=== PATIENT | female | born 1995 ===

== ENCOUNTER 2022-09-24 06:43 | Emergency (ER) | payer SELFPAY ==
[~2022-09-24] VITALS: Ht 160 cm; Wt 82.8 kg
[2022-09-24 06:44] VITALS: BP 129/78
[2022-09-24 07:31] LABS: APPEARANCE, URINE HAZY (CLEAR); BACTERIA, URINE AUTO 1+ (NEGATIVE); BILIRUBIN, URINE AUTO NEGATIVE (NEGATIVE); BLOOD, URINE BLOOD 2+ (NEGATIVE); COLOR, URINE YELLOW (YELLOW); GLUCOSE, URINE (UA) AUTO NEGATIVE (NEGATIVE); KETONE, URINE AUTO NEGATIVE (NEGATIVE); LEUKOCYTE ESTERASE, URINE AUTO NEGATIVE (NEGATIVE); MUCUS, URINE SMALL (NEGATIVE); NITRITE, URINE AUTO NEGATIVE (NEGATIVE); PROTEIN, URINE AUTO NEGATIVE (NEGATIVE); RBC, URINE AUTO 1 /HPF (0-3); SPECIFIC GRAVITY URINE AUTO 1.024 (1.002-1.035); SQUAMOUS EPITHELIAL CELL UR AU 10 /HPF (0-6); UROBILINOGEN, URINE AUTO 0.2 mg/dL (0.0-2.0); WBC, URINE AUTO 2 /HPF (0-3)
[2022-09-24 08:40] LABS: GC DNA AMPLIFICATION NEGATIVE (NEGATIVE)
== END 2022-09-24 09:05 | disposition left against medical advice (07) ==
LOC: M ED 06:43
DX: R10.2 Pelvic and perineal pain (principal); Z53.21 Procedure and treatment not carried out due to patient leaving prior to being seen by health care provider

== ENCOUNTER 2023-04-10 04:18 | Emergency (ER) | payer SELFPAY ==
[~2023-04-10] VITALS: Ht 160 cm; Wt 84.7 kg
[2023-04-10 04:18] VITALS: BP 130/69; TEMP 97.6; O2SAT 100
== END 2023-04-10 11:00 | disposition left against medical advice (07) ==
LOC: M ED 04:18
DX: Z53.21 Procedure and treatment not carried out due to patient leaving prior to being seen by health care provider (principal)